=== PATIENT | female | born 1965 | race Caucasian/White ===

== ENCOUNTER → 2021-01-19 11:21 | Outpatient (BNVA) | payer MEDICAID, SELFPAY | PROVIDERS: PCP Nurse Practitioner Family; Visit Provider Nurse Practitioner Family | DX: F32.9 Major depressive disorder, single episode, unspecified (principal); I10 Essential (primary) hypertension; E11.9 Type 2 diabetes mellitus without complications; E55.9 Vitamin D deficiency, unspecified; E78.2 Mixed hyperlipidemia; F41.9 Anxiety disorder, unspecified | CPT/HCPCS: 80053; 80061; 82306; 83036; 84439; 84443; 85025 ==

== ENCOUNTER → 2021-05-15 11:30 | Outpatient (BNVA) | payer MEDICAID, SELFPAY | PROVIDERS: PCP Nurse Practitioner Family; Visit Provider Nurse Practitioner Family | DX: D64.9 Anemia, unspecified (principal); E11.9 Type 2 diabetes mellitus without complications; F41.9 Anxiety disorder, unspecified | CPT/HCPCS: 80053; 81003; 82607; 82746; 83036; 83540; 83735; 84100; 85025 ==

== ENCOUNTER 2021-07-19 15:00 | Outpatient (CLI) | payer MEDICAID, SELFPAY ==
--- NOTE | 2021-07-19 15:45 | USCV_ITS ---
Emilee Bourgeois Age: 55 Gender: F : 1965 Exam Date: 07/19/2021 15:21 Ordering Phys: Hosea Reddy MD Technologist: Franci Avilez Exam Location: [facility] [place]: SOFT TISSUE DISORDER PROCEDURES: Venous duplex imaging was performed in only the right lower extremity. The following venous structures were evaluated: common femoral vein, profunda vein, proximal portion of the greater saphenous vein, superficial femoral vein, and the popliteal vein. In addition, the posterior tibial and peroneal trunk were evaluated. Serial compression, augmentation maneuvers, and spectral Doppler flow evaluation were performed. FINDINGS: Normal 2-D Doppler and augmentation and compressibility throughout the lower extremity venous structures. Additional imaging through the proximal calf veins also reveals no thrombus. Limited evaluation of the greater saphenous vein is patent with no thrombus.. CONCLUSIONS No evidence of right lower extremity DVT. Jerad Flores MD (Electronically Signed) Final Date: 19 July 2021 17:29 S
== END 2021-07-19 15:01 | disposition home or self-care (01) ==
LOC: RAD 15:02
PROVIDERS: PCP Nurse Practitioner Family; Visit Provider Family Medicine
DX: M79.89 Other specified soft tissue disorders (principal)
CPT/HCPCS: 93971